=== PATIENT | female | born 1995 | race American Indian/Alaskan Native ===

== ENCOUNTER 2017-11-02 14:22 | Emergency (ER) | payer SELFPAY ==
[2017-11-02 17:46] LABS: Bacteria,Urine 1+ /HPF (Negative); Bilirubin,Urine NEG (Negative); Blood,Urine NEG (Negative); Color,Urine Yellow (Yellow); Mucus,Urine 3+ /HPF; Nitrite,Urine POS (Negative); Protein,Urine <15 mg/dL mg/dL (Negative)
[2017-11-02 17:48] LABS: HCG Qualitative,Urine Negative (Negative)
--- NOTE | 2017-11-02 17:51 | Emergency Department Report ---
ED Dysuria HPI - HPI Chief Complaint: Urogenital-Female Stated Complaint: ODOR TO URINE Time Seen by Provider: 11/02/17 17:47 Duration: 3 Days Severity: Mild Symptoms: Dysuria: Yes, Frequency: No, Suprapubic Pain: No, Flank Pain: No, Fever: No, Hematuria: No, Abdominal Pain: No, Previous UTI's: Yes ED Review of Systems ROS: Stated complaint: ODOR TO URINE Other details as noted in HPI Comment: All other systems reviewed and negative Genitourinary: dysuria, other (FOULS SMELLING URINE) ED Past Medical Hx - Past Medical History Previous Medical History?: No Hx Hypertension: No Hx Congestive Heart Failure: No Hx Diabetes: No Hx Deep Vein Thrombosis: No Hx Renal Disease: No Hx Sickle Cell Disease: (Trait) Hx Seizures: No Hx Asthma: No Hx COPD: No Hx HIV: No Additional medical history: A0 vaginal delivery in 2013 - Surgical History Past Surgical History?: No - Social History Smoking Status: Never Smoker Substance Use Type: None - Medications Home Medications: Home Medications Medication Instructions Recorded Confirmed Last Taken Type Ciprofloxacin HCl [Cipro] 500 mg PO BID #10 tablet 11/02/17 Unknown Rx Dysuria Exam - Exam General: Vital signs noted. No distress. Alert and acting appropriately. Exam: Yes Moist Mucous Membranes, No CVA Tenderness, No Abdominal Tenderness, No Rigidity or Guarding Labs: Lab Results 11/02/17 Range/Units 17:00 Urine Color Yellow (Yellow) Urine Turbidity Clear (Clear) Urine pH 8.0 H (5.0-7.0) Ur Specific [place] 1.020 (1.003-1.030) Urine Protein <15 mg/dl (Negative) mg/dL Urine Glucose (UA) Neg (Negative) mg/dL Urine Ketones Neg (Negative) mg/dL Urine Blood Neg (Negative) Urine Nitrite Pos (Negative) Urine Bilirubin Neg (Negative) Urine Urobilinogen 2.0 (<2.0) mg/dL Ur Leukocyte Esterase Sm (Negative) Urine WBC (Auto) 3.0 (0.0-6.0) /HPF Urine RBC (Auto) 1.0 (0.0-6.0) /HPF U Epithel Cells (Auto) 10.0 (0-13.0) /HPF Urine Bacteria (Auto) 1+ (Negative) /HPF Urine Mucus 3+ /HPF Urine HCG, Qual Negative (Negative) ED Course Vital Signs 11/02/17 15:04 Temperature 98.4 F Pulse Rate 95 H Respiratory 20 Rate Blood Pressure 118/70 O2 Sat by Pulse 98 Oximetry - Reevaluation(s) Reevaluation #1: 11/02/17 17:57 TO ER W FOUL ODOR TO URINE GETS UTI OFTEN PREG NEG LMP ? ON BC NO ABD PAIN NO FEVER TAKING PO NON ILL NON TOXIC ED Medical Decision Making - Medical Decision Making SEE NOTE - Differential Diagnosis UTI; GETS OFTEN; NO CONCERN STD Critical care attestation.: If time is entered above; I have spent that time in minutes in the direct care of this critically ill patient, excluding procedure time. 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
[2017-11-02] MEDS ORDERED: LEVAQUIN PO ONE (17:52)
[2017-11-02 18:05] VITALS: BP 106/68
== END 2017-11-02 18:04 | disposition home or self-care (01) ==
LOC: ED 14:22
DX: N39.0 Urinary tract infection, site not specified (principal)
CPT/HCPCS: 81001; 81025; 99283

== ENCOUNTER 2019-02-25 07:43 | Emergency (ER) | payer OTHER, MEDICAID ==
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
--- NOTE | 2019-02-25 10:30 | Cat Scan Report ---
CT scan of cervical spine without contrast: History: Midline C-spine TTP. Findings: The odontoid process and lateral mass appears intact. Anterior and posterior arch of atlas appears unremarkable. Normal height of vertebral bodies and intervertebral discs. Normal. Paravertebral soft tissue. No evidence of acute fracture. Impression: No evidence of acute fracture.
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
[2019-02-25 12:40] VITALS: BP 115/69
== END 2019-02-25 12:40 | disposition home or self-care (01) ==
LOC: ED 07:43
DX: S16.1XXA Strain of muscle, fascia and tendon at neck level, initial encounter (principal); S29.012A Strain of muscle and tendon of back wall of thorax, initial encounter; V49.49XA Driver injured in collision with other motor vehicles in traffic accident, initial encounter; Y93.89 Activity, other specified; Y92.89 Other specified places as the place of occurrence of the external cause; Y99.8 Other external cause status
CPT/HCPCS: 36415; 70450; 72125; 72128; 84702